=== PATIENT | female | born 1955 | race African-American/Black ===

== ENCOUNTER 2016-09-26 17:31 | Emergency (ER) | payer MEDICARE, OTHER ==
[~2016-09-26 17:31] MED LIST: Nitroglycerin 0.4 MG TAB 1 EACH ONE
[2016-09-26] MEDS ORDERED: Aspirin 325 MG TAB ONE (18:10)
[2016-09-26] MEDS ORDERED: Nitroglycerin 0.4 MG TAB 1 EACH ONE (18:10)
[2016-09-26 18:27] LABS: #Basophils 0.3 thou/uL (0.0-0.2); #Lymphocytes 3.1 thou/uL (1.20-3.40); #Monocytes 0.8 thou/uL (0.11-0.59); %Basophils 2.7 % (0.0-1.0); %Eosinophils 0.4 % (0.0-10.0); %Lymphocytes 29.9 % (21.0-51.0); %Monocytes 7.9 % (0.0-10.0); %Neutrophils 59.1 % (42.0-75.0); Hemoglobin 15.6 g/dL (12.0-16.0); Mean Corpuscular HGB CONC 32.7 g/dL (32.0-36.0); Mean Corpuscular Hemoglobin 27.9 pg (27.0-31.0); Mean Corpuscular Volume 85.2 fl (81.0-99.0); Mean Platelet Volume 7.7 fL (7.4-10.4); Platelet Count 218 thou/uL (130-400); RBC Distribution Width 13.7 % (11.5-14.5); White Blood Cell (WBC) Count 10.2 thou/uL (4.8-10.8)
[2016-09-26 18:35] LABS: ALT (SGPT) 15 U/L (8-55); AST (SGOT) 11 U/L (5-34); Albumin 4.1 g/dL (3.4-4.8); Alkaline Phosphatase 93 U/L (40-150); Anion Gap 16 mmol/L (10-20); Bilirubin, Total 0.4 mg/dL (0.2-1.2); CK (CPK) 64 U/L (29-168); Calc. Creatinine Clearance 0 mL/min (70-130); Calcium 9.1 mg/dL (7.8-10.44); Carbon Dioxide 20 mmol/L (23-31); Chloride 107 mmol/L (98-107); Estimated GFR-MDRD 68; Globulin 3.5 g/dL (2.4-3.5); Glucose 112 mg/dL (80-115); Magnesium 2.2 mg/dL (1.6-2.6); Potassium 3.5 mmol/L (3.5-5.1); Protein, Total 7.6 g/dL (5.8-8.1); Sodium 139 mmol/L (136-145)
[2016-09-26 18:39] LABS: CKMB 0.6 ng/mL (0-6.6); Troponin I 0.018 ng/mL (< 0.028)
[2016-09-26 18:44] LABS: BUN (Urea Nitrogen) 12 mg/dL (9.8-20.1)
[2016-09-26] MEDS ORDERED: Nitroglycerin 2% Ointment 1 INCH/1 GM Packet ONE (19:11)
--- NOTE | 2016-09-26 19:11 | RAD ---
UPRIGHT PORTABLE CHEST ONE VIEW: 09/26/16 HISTORY: 61-year-old female with chest pain. COMPARISON: 07/03/11. The patient has a large body habitus which lowers the sensitivity of this study. Borderline heart si ze. Minimal increased linear and interstitial markings bilaterally without confluent pneumonia or ov ert edema or significant pleural effusion. IMPRESSION: Somewhat limited study technically. Borderline heart size with mild increased markings but no conflu ent pneumonia, overt edema, or other significant acute process. POS: [facility]UTI
== END 2016-09-26 19:30 | disposition short-term general hospital (02) ==
LOC: MADERS 17:31
DX: I20.0 Unstable angina (principal); I10 Essential (primary) hypertension; F17.210 Nicotine dependence, cigarettes, uncomplicated; Z79.899 Other long term (current) drug therapy
CPT/HCPCS: 71010; 80053; 82553; 83735; 83880; 84484; 85025; 85610; 93005; 94760

== ENCOUNTER 2017-08-20 11:14 | Emergency (ER) | payer MEDICARE, OTHER ==
[2017-08-20] MEDS ORDERED: Benzonatate 100 MG CAP ONE (12:02)
== END 2017-08-20 11:55 | disposition home or self-care (01) ==
LOC: MADERS 11:14
DX: J20.9 Acute bronchitis, unspecified (principal); B34.9 Viral infection, unspecified; I10 Essential (primary) hypertension; F17.210 Nicotine dependence, cigarettes, uncomplicated; Z79.899 Other long term (current) drug therapy
CPT/HCPCS: 99283

== ENCOUNTER 2018-06-10 10:20 | Outpatient (CLI) | payer MEDICARE ==
--- NOTE | 2018-06-10 11:56 | RAD ---
TWO VIEW CHEST: Indication: Cough. FINDINGS: Cardiac silhouette is mildly enlarged. There is mild prominence of the central pulmonary vasculature. Mild hazy density seen in the left chest. Some of this may relate to overlying body wall soft tissue s. There are prominent osteophytes of the imaged spine. IMPRESSION: 1. Mild enlargement of the cardiac silhouette and central pulmonary vasculature. Correlate for fluid status. 2. Mild increased density at the left lower chest which may be related to overlying body wall soft ti ssues. The possibility of underlying consolidation/minimal pleural fluid not excluded. Continued foll ow up may be obtained as necessary. POS: VINOD
== END 2018-06-10 10:21 | disposition home or self-care (01) ==
LOC: MADRAD 10:20
PROVIDERS: ATTEND Physician Assistant
DX: R05 Cough (principal); I51.7 Cardiomegaly; J98.4 Other disorders of lung
CPT/HCPCS: 71046

== ENCOUNTER 2019-01-08 14:43 | Outpatient (CLI) | payer MEDICARE ==
--- NOTE | 2019-01-08 15:42 | RAD ---
TWO VIEWS CHEST: DATE: 01/08/2019. PROVIDED CLINICAL HISTORY: Followup abnormal chest radiograph. FINDINGS: Evaluation is limited by patient body habitus. The cardiac and mediastinal silhouette appears within normal limits. No focal consolidation, pleural fluid, or pneumothorax apparent. IMPRESSION: No definite evidence for an acute cardiopulmonary process with limitations as above. POS: [facility]
== END 2019-01-08 14:44 | disposition home or self-care (01) ==
LOC: MADRAD 14:43
PROVIDERS: ATTEND Physician Assistant
DX: R05 Cough (principal)
CPT/HCPCS: 71046

== ENCOUNTER 2020-04-22 02:26 | Emergency (ER) | payer MEDICARE ==
[2020-04-22] MEDS ORDERED: Amlodipine 5 MG TAB ONE (02:58)
[2020-04-22] MEDS ORDERED: cloNIDine 0.1mg/24 Hour PATCH ONE (02:58)
[2020-04-22] MEDS ORDERED: cloNIDine 0.1 MG TAB ONE (02:58)
[2020-04-22 03:50] LABS: #Basophils 0.1 thou/uL (0.0-0.2); #Eosinphils 0.1 thou/uL (0.0-0.7); #Lymphocytes 3.1 thou/uL (1.20-3.40); #Monocytes 0.7 thou/uL (0.11-0.59); #Neutrophils 6.2 thou/uL (1.40-6.50); %Basophils 0.7 % (0.0-1.0); %Eosinophils 1.1 % (0.0-10.0); %Lymphocytes 30.2 % (21.0-51.0); %Monocytes 7.1 % (0.0-10.0); %Neutrophils 60.9 % (42.0-75.0); Hemoglobin 13.1 g/dL (12.0-16.0); Mean Corpuscular HGB CONC 31.2 g/dL (32.0-36.0); Mean Corpuscular Hemoglobin 27.8 pg (27.0-31.0); Mean Platelet Volume 7.1 fL (7.4-10.4); Platelet Count 175 thou/uL (130-400); RBC Distribution Width 12.7 % (11.5-14.5); Red Blood Cell (RBC) Count 4.73 mill/uL (4.20-5.40); White Blood Cell (WBC) Count 10.1 thou/uL (4.8-10.8)
[2020-04-22 03:53] LABS: ALT (SGPT) 22 U/L (8-55); AST (SGOT) 12 U/L (5-34); Albumin 3.7 g/dL (3.4-4.8); Alkaline Phosphatase 62 U/L (40-110); Anion Gap 14 mmol/L (10-20); BUN (Urea Nitrogen) 10 mg/dL (9.8-20.1); Bilirubin, Total 0.3 mg/dL (0.2-1.2); CK (CPK) 75 U/L (29-168); Calc. Creatinine Clearance 0 mL/min (70-130); Calcium 8.8 mg/dL (7.8-10.44); Carbon Dioxide 25 mmol/L (23-31); Chloride 110 mmol/L (98-107); Estimated GFR-MDRD 64; Globulin 3.2 g/dL (2.4-3.5); Glucose 135 mg/dL (80-115); Potassium 3.2 mmol/L (3.5-5.1); Protein, Total 6.9 g/dL (6.0-8.3); Sodium 146 mmol/L (136-145)
[2020-04-22] MEDS ORDERED: Potassium Chloride 20 MEQ TAB ONE (04:01)
[2020-04-22] MEDS ORDERED: Aspirin Chewable 81 MG TAB ONE (04:03)
[2020-04-22 04:15] LABS: CKMB 0.6 ng/mL (0-6.6)
--- NOTE | 2020-04-22 08:26 | RAD ---
SINGLE VIEW OF THE CHEST: COMPARISON: 01/08/2019. HISTORY: Chest pain. FINDINGS: A single view of the chest shows a cardiomediastinal silhouette which is upper limits of normal in si ze. There is no evidence of consolidation, mass, pneumothorax, or pleural effusion. Degenerative ch anges are seen in the spine. IMPRESSION: No evidence of acute cardiopulmonary disease. POS: [facility]
== END 2020-04-22 04:38 | disposition short-term general hospital (02) ==
LOC: MADERS 02:26
DX: R79.89 Other specified abnormal findings of blood chemistry (principal); I10 Essential (primary) hypertension; R00.8 Other abnormalities of heart beat; Z71.6 Tobacco abuse counseling; E78.5 Hyperlipidemia, unspecified; E78.00 Pure hypercholesterolemia, unspecified; F17.210 Nicotine dependence, cigarettes, uncomplicated; Z79.899 Other long term (current) drug therapy
CPT/HCPCS: 71045; 80053; 82550; 82553; 84484; 85025; 93005; 94760; 99406

== ENCOUNTER 2021-03-23 15:34 | Outpatient (CLI) | payer MEDICARE | END 2021-03-23 15:35 | disposition home or self-care (01) | LOC: MADLAB 15:34 → MADRAD 15:35 | PROVIDERS: ATTEND Physician Assistant | DX: R06.02 Shortness of breath (principal) | CPT/HCPCS: 71046 ==

== ENCOUNTER 2023-08-18 14:52 | Emergency (ER) | payer MEDICARE ==
[2023-08-18] MEDS ORDERED: Acetaminophen 500 MG TAB ONE (15:19)
[2023-08-18] MEDS ORDERED: predniSONE 20 MG TAB ONE (15:42)
[2023-08-18] MEDS ORDERED: Ipratropium/Albuterol 3 ML NEB ONE (15:42)
[2023-08-18 16:08] LABS: SARS-CoV-2 E Target Negative; SARS-CoV-2 N2 Target Negative; SARS-CoV-2 NAA Rapid Test Not Detected (NotDetected); SARS-CoV-2 RdRP gene Negative
== END 2023-08-18 16:15 | disposition home or self-care (01) ==
LOC: MADERS 14:52
DX: J06.9 Acute upper respiratory infection, unspecified (principal); J44.1 Chronic obstructive pulmonary disease with (acute) exacerbation; I10 Essential (primary) hypertension; F17.210 Nicotine dependence, cigarettes, uncomplicated; E78.00 Pure hypercholesterolemia, unspecified; Z79.899 Other long term (current) drug therapy
CPT/HCPCS: 71045; 87804 ×2; U0002; J7512; J7620